=== PATIENT | male | born 1980 | race Caucasian/White ===

== ENCOUNTER 2021-10-10 12:52 | Emergency (ER) | payer MEDICAID ==
[2021-10-10] MEDS: Sodium Chloride 0.9% 1,000 ML IV ONE (12:55)
[2021-10-10 13:30] LABS: ANION GAP 15.5 mmol/L (5-15); CHLORIDE,CL 103 mmol/L (98-107); SODIUM,NA 138 mmol/L (136-145)
[2021-10-10] MEDS: Nitroglycerin 2% Oint 1 GM UD Packet TOP ONE (13:40)
[2021-10-10 17:08] VITALS: PULSE 90
[2021-10-10 17:09] VITALS: BP 123/76
[2021-10-10] MEDS: Acetaminophen 500 MG Tab ONE (17:33)
[2021-10-10] MEDS: Acetaminophen 500 MG Tab PO ONE (17:33)
== END 2021-10-10 17:45 | disposition home or self-care (01) ==
LOC: KA.ED 12:52
DX: R07.2 Precordial pain (principal)
CPT/HCPCS: 36415; 71045; 80053; 84484; 85025; 85379; 99285; A9270; J7030; 93005; 93010